=== PATIENT | female | born 1960 | race Two or more races ===

== ENCOUNTER 2019-01-24 09:20 | Emergency (ER) | payer MEDICAID ==
[~2019-01-24] VITALS: Ht 165.1 cm; Wt 85.7 kg
--- NOTE | 2019-01-24 09:31 | NUR ---
PT BIB SON C/O Pain "I have pain everywhere x2wks.Worse last 4d. Was Dx w/Fibromyalgia and Rheumatoid Arthritis on meds NOT helping" PT IS AAOX4, NOT IN RESPIRATORY DISTRESS, V/S STABLE, KEPT RESTED AND COMFORTABLE, WILL CONTINUE TO MONITOR.
[2019-01-24] MEDS ORDERED: PRED20TA PO (09:44)
[2019-01-24] MEDS ORDERED: METH2.5T PO (09:44)
[2019-01-24] MEDS ORDERED: GABA-534 PO (09:44)
[2019-01-24] MEDS ORDERED: FOLI1TAB16 PO (09:44)
[2019-01-24] MEDS ORDERED: ADAL40PE SQ (09:44)
--- NOTE | 2019-01-24 10:12 | NUR ---
SEEN AND EXAMINED BY DR. GRIFFIN.
[2019-01-24] MEDS ORDERED: MORPHINE SULFATE INJ 4 MG/ML DISP.SYRIN ONE (10:23)
[2019-01-24 10:24] LABS: BASOPHILS # (AUTO) 0.1 /CMM (0.0-0.2); BASOPHILS % (AUTO) 0.6 % (0.0-2.0); EOSINOPHILS % (AUTO) 1.1 % (0.0-6.0); HEMATOCRIT 39 % (33-45); HEMOGLOBIN 13.2 g/dL (11.5-14.8); LYMPHOCYTES # (AUTO) 2.2 /CMM (0.8-4.8); MEAN CORPUSCULAR HGB CONC 34 g/dl (31.0-36.0); MEAN CORPUSCULAR VOLUME 92 fL (82-100); MONOCYTES # (AUTO) 0.6 /CMM (0.1-1.30); MONOCYTES % (AUTO) 6.5 % (2.0-12.0); NEUTROPHILS # (AUTO) 6.3 /CMM (1.8-8.9); NEUTROPHILS % (AUTO) 67.8 % (43.0-81.0); PLATELET COUNT (AUTO) 275 /CMM (150-450); RED BLOOD CELL COUNT(AUTO) 4.25 MIL/uL (4.0-5.2); WHITE BLOOD COUNT (AUTO) 9.3 K/uL (4.3-11.0)
--- NOTE | 2019-01-24 10:25 | NUR ---
IV LINE ESTABLISHED, LABS DRAWNED AND SENT TO LAB.
[2019-01-24] MEDS ORDERED: MORPHINE SULFATE INJ 2 MG/ML DISP.SYRIN IV ONE (10:30)
[2019-01-24] MEDS ORDERED: IV NS 0.9% 1,000 ML BAG IV ONE (10:30)
[2019-01-24 10:32] LABS: CALCIUM, SERUM 8.8 mg/dL (8.5-10.1); CREATININE 0.6 mg/dL (0.6-1.3); POTASSIUM 3.6 mmol/L (3.5-5.1)
[2019-01-24 10:37] LABS: ALBUMIN 3.5 g/dL (3.4-5.0); BILIRUBIN,DIRECT 0.1 mg/dL (0.0-0.2); BILIRUBIN,TOTAL 0.6 mg/dL (0.2-1.0); TOTAL PROTEIN, SERUM 7.8 g/dL (6.4-8.2)
--- NOTE | 2019-01-24 10:39 | NUR ---
URINAL GIVEN BUT UNABLE TO PROVIDE URINE SPECIMEN.
[2019-01-24 10:41] LABS: C-REACTIVE PROTEIN 1.8 mg/dL (0.0-0.9)
--- NOTE | 2019-01-24 10:59 | NUR ---
CALLED AND LEFT A MESSAGE TO AGUSTIN BELTRE.
[2019-01-24] MEDS ORDERED: methylPREDNISolone ACETATE 80 MG/ML VIAL IM ONE (11:00)
--- NOTE | 2019-01-24 11:09 | NUR ---
URINE SPECIMEN COLLECTED AND SENT TO LAB.
[2019-01-24] MEDS ORDERED: methylPREDNISolone ACETATE 80 MG/ML VIAL ONE (11:19)
[2019-01-24 11:24] LABS: APPEARANCE,URINE Clear (CLEAR); BILIRUBIN,URINE Negative (NEGATIVE); BLOOD, URINE Negative Ery/uL (NEGATIVE); COLOR,URINE Yellow (YELLOW); KETONES,URINE Negative (NEGATIVE); LEUKOCYTE ESTERASE ,URINE Small (NEGATIVE); NITRITE, URINE Negative (NEGATIVE); PROTEIN,URINE Negative (NEGATIVE); UGLUCOSE Negative (NEGATIVE); UROBILINOGEN,URINE 0.2 EU/dL (0.2)
[2019-01-24 11:28] LABS: MONOTEST NEGATIVE (NEGATIVE)
[2019-01-24] MEDS ORDERED: HYDROCODONE/APAP 5/325MG 1 EACH TABLET PO ONE (11:30)
[2019-01-24 11:36] LABS: RBC,URINE 0-2 /HPF (0-2)
[2019-01-24] MEDS ORDERED: HYDROCODONE/APAP 5/325MG 1 EACH TABLET ONE (11:37)
[2019-01-24 11:39] LABS: BACTERIA,URINE Moderate /HPF (None Seen); SQUAMOUS EPITHELIAL CELL,UR Few /HPF (None Seen)
[2019-01-24 11:47] VITALS: BP 135/94
--- NOTE | 2019-01-24 11:47 | NUR ---
IV removed. Catheter intact and site benign. Pressure and 4x4 applied to site. No bleeding noted. Patient discharged to home in stable condition. Written and verbal after care instructions given. Patient verbalizes understanding of instruction.
== END 2019-01-24 11:55 | disposition home or self-care (01) ==
LOC: ER 09:23
DX: M06.811 Other specified rheumatoid arthritis, right shoulder (principal); M79.7 Fibromyalgia; Z90.710 Acquired absence of both cervix and uterus
CPT/HCPCS: 36415; 80048; 80076; 81001; 82550; 85025; 85652; 86140; 86308; 87070; 87086; 87880; 96372; 96374; 99283; J1040; J2270; J7030; 81000-TC; 86403-TC